=== PATIENT | female | born 1945 | race Caucasian/White ===

== ENCOUNTER 2018-12-31 12:45 | Outpatient (RCR) | payer MEDICARE, OTHER ==
[~2018-12-31 12:45] MED LIST: ALLEGRA 60MG TA60 MG PO; BENICAR HCT 12.1 TA1
== END 2019-03-15 ==
LOC: MKS.ESL.PT
DX: J30.9 Allergic rhinitis, unspecified (principal); I10 Essential (primary) hypertension; M25.511 Pain in right shoulder; M54.6 Pain in thoracic spine